=== PATIENT | female | born 1975 | race Caucasian/White ===

== ENCOUNTER 2016-06-04 19:35 | Observation (INO) | payer BC, OTHER ==
[~2016-06-04] VITALS: Ht 170.2 cm; Wt 87.3 kg
[~2016-06-04 19:35] MED LIST: MULTTAB58 PO; SERT1TAB72 PO
[2016-06-04] MEDS ORDERED: NITROGLYCERIN OINT 2% 1GM PACKET EXT STA (19:58)
[2016-06-04] MEDS ORDERED: SODIUM CHLORIDE 0.9% 1000ML 500 ML IV STA (19:58)
--- NOTE | 2016-06-04 20:23 | DIAGNOSTIC IMAGING REPORT ---
CHEST ONE VIEW PORTABLE CLINICAL HISTORY: Atypical chest pain COMPARISON STUDY: 08/22/2014 FINDINGS: The cardiac and mediastinal contours are normal. There is no evidence of focal pulmonary consolidation. There is no evidence of failure. No pleural effusions are visualized.[ IMPRESSION: No active disease in the chest. Electronically signed by: Stephen Guzman M.D. 06/04/2016 8:22 PM Dictated Date/Time: 06/04/2016 8:21 PM
--- NOTE | 2016-06-04 20:35 | EMERGENCY ROOM VISIT NOTE ---
History Report prepared by Ramses: Deyanira Parra Under the Supervision of: Dr. Nilo Chaney M.D. First contact with patient: 19:51 Chief Complaint: CHEST PAIN Stated Complaint: HEAVINESS IN CHEST, SHARP PAIN IN LT SHOULDER/ARM History of Present Illness The patient is a 40 year old female who presents to the Emergency Room with complaints of constant left sided chest pain starting about 10 hours ago. She describes it to be a heaviness. She has intermittent pain radiation to her left shoulder. She was sitting at her desk when she had the onset of her symptoms. She denies any activities that improve or worsen her pain. She currently rates a pain intensity of 6/10. She has not taken any medication to help improve her pain. A few days ago, the patient had similar symptoms which resolved. She has a history of A Flutter and A Fib. A few days ago, the patient had a fluttering sensation which resolved. The patient denies any history of blood clots. The patient is not a smoker. Her father in his 50s from heart disease. She denies any recent illnesses. She also denies fevers, chills, shortness of breath, or any other complaints. Source of History: patient Onset: about 10 hours ago Position: chest (left) Symptom Intensity: 6/10 Quality: other (heaviness) Timing: constant Associated Symptoms: No SOB, No chills, No fevers Review of Systems See HPI for pertinent positives & negatives. A total of 10 systems reviewed and were otherwise negative. Past Medical & Surgical Medical Problems: (1) A-fib (2) Atrial fibrillation (3) Atrial flutter (4) Chest pain (5) Nausea/vomiting in (6) Palpitations (7) uterine contractions, antepartum (8) Tachycardia (9) Threatened premature labor, antepartum (10) Threatened labor, antepartum (11) [place] Teeth Removal Family History Cancer FH: heart disease Hypertension Social History Smoking Status: Never Smoker Marital Status: Housing Status: lives with family Occupation Status: employed Current/Historical Medications Scheduled Multiple Vitamin (Multivitamin), 1 TAB PO DAILY Sertraline Hcl (Zoloft), 25 MG PO DAILY Allergies Coded Allergies: Iodine (Verified Allergy, Mild, INJECTABLE, 09/22/09) Physical Exam Vital Signs Date Time Temp Pulse Resp B/P Pulse Ox O2 Delivery O2 Flow Rate FiO2 06/04/16 21:27 72 20 127/62 97 Room Air 06/04/16 19:54 Room Air 06/04/16 19:50 68 06/04/16 19:38 36.7 66 16 131/84 96 Room Air Physical Exam GENERAL: Patient is in no acute distress. HEENT: No acute trauma, normocephalic atraumatic, mucous membranes moist, no nasal congestion, no scleral icterus. NECK: No stridor, no adenopathy, no meningismus, trachea is midline. CHEST: Nontender chest wall. LUNGS: Clear to auscultation bilaterally, no wheeze, no rhonchi, breath sounds equal. HEART: Without murmurs gallops or rubs, regular rate and rhythm. ABDOMEN: Soft, nontender, bowel sounds positive, no hernias, no peritonitis. EXTREMITIES: No cyanosis or edema, no signs for acute trauma. Slight discomfort with movement of the left shoulder. NEUROLOGIC: Oriented x 3, no acute motor or sensory deficits, no focal weakness. SKIN: No rash, no jaundice, no diaphoresis. Medical Decision & Procedures ER Provider Diagnostic Interpretation: X-ray results as stated below per interpretation by me and the radiologist: CHEST ONE VIEW PORTABLE CLINICAL HISTORY: Atypical chest pain COMPARISON STUDY: 08/22/2014 FINDINGS: The cardiac and mediastinal contours are normal. There is no evidence of focal pulmonary consolidation. There is no evidence of failure. No pleural effusions are visualized.[ IMPRESSION: No active disease in the chest. Electronically signed by: Stephen Guzman M.D. 06/04/2016 8:22 PM Dictated Date/Time: 06/04/2016 8:21 PM Laboratory Results 06/04/16 21:00 06/04/16 21:00 Test 06/04/16 21:00 06/04/16 21:06 Red Blood Count 4.28 M/uL (4.2-5.4) Mean Corpuscular Volume 84.6 fL (80-100) Mean Corpuscular Hemoglobin 29.2 pg (25-34) Mean Corpuscular Hemoglobin Concent 34.5 g/dl (32-36) RDW Standard Deviation 43.4 fL (36.4-46.3) RDW Coefficient of Variation 14.0 % (11.5-14.5) Mean Platelet Volume 9.3 fL (7.4-10.4) Prothrombin Time 10.9 SECONDS (9.0-12.0) Prothromb Time International Ratio 1.0 (0.9-1.1) Activated Partial Thromboplast Time 28.0 SECONDS (21.0-31.0) Partial Thromboplastin Ratio 1.1 Anion Gap 9.0 mmol/L (3-11) Est Creatinine Clear Calc Drug Dose 71.4 ml/min Estimated GFR () 65.0 Estimated GFR (Non- 56.1 BUN/Creatinine Ratio 12.3 (10-20) Calcium Level 8.7 mg/dl (8.5-10.1) Total Bilirubin 0.3 mg/dl (0.2-1) Aspartate Amino Transf (AST/SGOT) 10 U/L (15-37) Alanine Aminotransferase (ALT/SGPT) 18 U/L (12-78) Alkaline Phosphatase 55 U/L (45-117) Total Creatine Kinase 45 U/L (26-192) Creatine Kinase MB < 0.5 ng/ml (0.5-3.6) Creatine Kinase MB Ratio (0-3.0) Troponin I < 0.015 ng/ml (0-0.045) Total Protein 6.7 gm/dl (6.4-8.2) Albumin 3.9 gm/dl (3.4-5.0) Globulin 2.8 gm/dl (2.5-4.0) Albumin/Globulin Ratio 1.4 (0.9-2) Bedside D-Dimer 300 ng/mlFEU (0-450) Laboratory results reviewed by me. Medications Administered Medications (Trade) Dose Ordered Sig/Génesis Route Start Time Stop Time Status Last Admin Dose Admin Sodium Chloride (Nss 1000ml) 500 ml @ 999 mls/hr Q31M STAT IV 06/04/16 19:58 06/04/16 20:28 DC 06/04/16 20:11 999 MLS/HR Nitroglycerin (Nitroglycerin 2% Oint) 1 inch NOW STAT EXT 06/04/16 19:58 06/04/16 20:02 DC 06/04/16 20:10 1 INCH ECG Indication: chest pain Rate (beats per minute): 70 Rhythm: normal sinus Findings: no acute ischemic change, no ectopy ED Course 1950: The patient was evaluated in room B04B. A complete history and physical exam was performed. 1957: Nitroglycerin 1 inch EXT, Sodium Chloride 500 ml @ 999 mls/hr IV 2057: I reevaluated the patient whose chest pain has slightly improved with nitro paste. 2139: Upon reexamination the patient is resting comfortably. I discussed results and treatment plan with the patient. She verbalizes agreement and understanding. The patient will be evaluated for further management. 2210: Aspirin 324 mg PO 2227: I discussed the patient's case with Dr. Subramanian, from [facility]. Medical Decision Differential diagnosis includes but is not limited to musculoskeletal pain, pulmonary embolism, aortic dissection, pneumonia, angina, myocardial infarction , cardiac ischemia. There is no leukocytosis or concerning anemia. No significant electrolyte abnormality, kidney failure or hepatitis. There was no coagulopathy. D-dimer testing was negative. With a negative d-dimer and my low suspicion for PE, I will stop the workup for this diagnosis. EKG shows a normal sinus rhythm, no acute ischemia. Cardiac enzyme testing times one is not suggestive of acute cardiac injury. Chest film shows no mediastinal widening, pneumonia or pneumothorax. The patient was given nitro paste, IV saline, oral aspirin. She is now basically pain-free. The patient presents with chest pressure and pain. She has a strong family history of coronary disease. I cannot reproduce her pain on exam. I do think further cardiac workup would be indicated. I spoke with the patient and case management. The on-call hospitalist was consulted. Consults Time Called: 2134 Consulting Physician: Dr. Subramanian, from [facility] Returned Call: [phone] I discussed the patient's case with Dr. Subramanian, from [facility]. Impression Primary Impression: Left sided chest pain Scribe Attestation The scribe's documentation has been prepared under my direction and personally reviewed by me in its entirety. I confirm that the note above accurately reflects all work, treatment, procedures, and medical decision making performed by me. Departure Information Dispostion Being Evaluated By Hospitalist Referrals Kit Reyes M.D.(HUGH) (PCP) Patient Instructions [facility]
[2016-06-04 21:14] LABS: HEMATOCRIT 36.2 % (37-47); MEAN CELL VOLUME 84.6 fL (80-100); MEAN CORPUSCULAR HEMOGLOBIN 29.2 pg (25-34); MEAN CORPUSCULAR HGB CONC 34.5 g/dl (32-36); MEAN PLATELET VOLUME 9.3 fL (7.4-10.4); PLATELET COUNT 183 K/uL (130-400); RED BLOOD COUNT 4.28 M/uL (4.2-5.4); WHITE BLOOD COUNT 4.72 K/uL (4.8-10.8)
[2016-06-04 21:24] LABS: PARTIAL THROMBOPLASTIN RATIO 1.1; PROTHROMBIN TIME (PATIENT) 10.9 SECONDS (9.0-12.0)
[2016-06-04 21:41] LABS: ALT/SGPT 18 U/L (12-78); BLOOD UREA NITROGEN 15 mg/dl (7-18); BUN/CREATININE RATIO 12.3 (10-20); CALCIUM 8.7 mg/dl (8.5-10.1); CARBON DIOXIDE 25 mmol/L (21-32); CHLORIDE 108 mmol/L (98-107); GLUCOSE 96 mg/dl (70-99); POTASSIUM 3.7 mmol/L (3.5-5.1); SODIUM 142 mmol/L (136-145)
[2016-06-04 21:45] LABS: ALB/GLOB RATIO 1.4 (0.9-2); ALKALINE PHOSPHATASE 55 U/L (45-117); AST/SGOT 10 U/L (15-37)
[2016-06-04] MEDS ORDERED: ASPIRIN 81 MG CHEW PO STA (22:11)
--- NOTE | 2016-06-04 22:24 | History and Physical ---
History & Physical Date & Time of Service: Jun 04, 2016 at 22:25 . Chief Complaint: chest pain . Primary Care Physician: Kit Reyes M.D.(JAVIER) . History of Present Illness Source: patient, clinic records, hospital records 40 YO female followed by Dr. Reyes. History of paroxysmal atrial fibrillation. Father had history of premature ischemic heart disease and at the age of 50. Experiences chronic occasional mild palpitations without associated symptoms. 2 days ago had an episode of chest pressure while sitting at her desk at work. Today around 10:00 she experienced more severe midsternal chest pressure that radiated to her left arm, again while working at her desk. No associated dyspnea, diaphoresis, nausea, vomiting. Had a few episodes of palpitations throughout the day. [place] a bit lightheaded. Chest pressure persisted, so she came to the ED for evaluation around 19:30. Received NTP with resolution of the CP. She notes mild dyspnea on exertion, but no associated chest pain / pressure. . Past Medical/Surgical History Chronic Medical Problems: Cholelithiasis Paroxysmal atrial fibrillation . Family History FATHER Coronary artery disease ( age 50) MOTHER Atrial fibrillation BROTHER Hypertension SISTER Atrial fibrillation Social History Smoking Status: Never Smoker Alcohol Use: occasionally Marital Status: Housing status: lives with family Occupational Status: employed Immunizations History of Influenza Vaccine: Unknown History of Tetanus Vaccine?: Unknown History of Pneumococcal: Unknown History of Hepatitis B Vaccine: Unknown Multi-Drug Resistant Organisms History of MDRO: No Allergies Coded Allergies: Iodine (Verified Allergy, Mild, INJECTABLE, 09/22/09) Home Medications Scheduled Multiple Vitamin (Multivitamin), 1 TAB PO DAILY Sertraline Hcl (Zoloft), 25 MG PO DAILY Review of Systems Constitutional: No fever, No weight loss Eyes: No diplopia, No worsening of vision ENT: No hearing loss, No nasal symptoms Respiratory: + dyspnea on exertion, No cough Cardiovascular: + problem reported (as noted in HPI) Abdomen: No GI bleeding, No diarrhea, No nausea, No pain, No vomiting Musculoskeletal: No joint pain Genitourinary - Female: No dysuria, No hematuria Neurologic: + problem reported (migraine headaches) Endocrine: No excessive thirst, No excessive urination Hematologic / Lymphatic: + abnormal bleeding/bruising (bruises easily), No swollen lymph nodes Integumentary: No new/changing skin lesions, No rash Physical Exam Vital Signs Date Time Temp Pulse Resp B/P Pulse Ox O2 Delivery O2 Flow Rate FiO2 06/04/16 21:27 72 20 127/62 97 Room Air 06/04/16 19:54 Room Air 06/04/16 19:50 68 06/04/16 19:38 36.7 66 16 131/84 96 Room Air General Appearance: WD/WN, no apparent distress Head: normocephalic, atraumatic Eyes: normal inspection, PERRL, EOMI, sclerae normal, + pertinent finding ( conjunctivae pink) ENT: normal ENT inspection, hearing grossly normal, pharynx normal Neck: supple, no adenopathy, thyroid normal, no JVD, trachea midline Respiratory/Chest: lungs clear, no respiratory distress, no accessory muscle use Cardiovascular: regular rate, rhythm, no edema, no gallop, no JVD, no murmur Abdomen/GI: normal bowel sounds, non tender, soft, no organomegaly Extremities/Musculoskelatal: normal inspection, no calf tenderness, no pedal edema 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 (PERRL, EOMI, no facial palsy), alert, normal mood/affect, oriented x 3 Skin: normal color, warm/dry, no rash Lymphatic: no adenopathy Diagnostics Laboratory Results Results Past 24 Hours Test 06/04/16 21:00 06/04/16 21:06 Range/Units White Blood Count 4.72 4.8-10.8 K/uL Red Blood Count 4.28 4.2-5.4 M/uL Hemoglobin 12.5 12.0-16.0 g/dL Hematocrit 36.2 37-47 % Mean Corpuscular Volume 84.6 80-100 fL Mean Corpuscular Hemoglobin 29.2 25-34 pg Mean Corpuscular Hemoglobin Concent 34.5 32-36 g/dl RDW Standard Deviation 43.4 36.4-46.3 fL RDW Coefficient of Variation 14.0 11.5-14.5 % Platelet Count 183 130-400 K/uL Mean Platelet Volume 9.3 7.4-10.4 fL Prothrombin Time 10.9 9.0-12.0 SECONDS Prothromb Time International Ratio 1.0 0.9-1.1 Activated Partial Thromboplast Time 28.0 21.0-31.0 SECONDS Partial Thromboplastin Ratio 1.1 Sodium Level 142 136-145 mmol/L Potassium Level 3.7 3.5-5.1 mmol/L Chloride Level 108 98-107 mmol/L Carbon Dioxide Level 25 21-32 mmol/L Anion Gap 9.0 3-11 mmol/L Blood Urea Nitrogen 15 7-18 mg/dl Creatinine 1.20 0.60-1.20 mg/dl Est Creatinine Clear Calc Drug Dose 71.4 ml/min Estimated GFR () 65.0 Estimated GFR (Non- 56.1 BUN/Creatinine Ratio 12.3 10-20 Random Glucose 96 70-99 mg/dl Calcium Level 8.7 8.5-10.1 mg/dl Total Bilirubin 0.3 0.2-1 mg/dl Aspartate Amino Transf (AST/SGOT) 10 15-37 U/L Alanine Aminotransferase (ALT/SGPT) 18 12-78 U/L Alkaline Phosphatase 55 45-117 U/L Total Creatine Kinase 45 26-192 U/L Creatine Kinase MB < 0.5 0.5-3.6 ng/ml Creatine Kinase MB Ratio 0-3.0 Troponin I < 0.015 0-0.045 ng/ml Total Protein 6.7 6.4-8.2 gm/dl Albumin 3.9 3.4-5.0 gm/dl Globulin 2.8 2.5-4.0 gm/dl Albumin/Globulin Ratio 1.4 0.9-2 Bedside D-Dimer 300 0-450 ng/mlFEU Diagnostic Radiology CHEST ONE VIEW PORTABLE IMPRESSION: No active disease in the chest. Electronically signed by: Stephen Guzman M.D. 06/04/2016 8:22 PM . EKG EKG performed at 19:39 reviewed and demonstrated NSR at 70 / minute, no acute ST or T-wave abnormalities. . Impression Assessment and Plan CHEST PAIN Chest pain at rest that lasted for several hours, resolved after administration of NTP in ED. Cardiac markers in ED normal. No acute EKG changes. Family history of premature CAD (father at age of 50); no other risk factors for CAD. Check serial cardiac markers. Check lipid profile. Consult Cardiology. PAROXYSMAL ATRIAL FIBRILLATION Monitor on Telemetry Unit. VTE PROPHYLAXIS SQ enoxaparin. Ambulate. DISPOSITION Observation status on Telemetry Unit. Expected discharge to home. Family Medicine follow-up with Dr. Reyes. . VTE Prophylaxis VTE Risk Assessment Done? Y/N: Yes Risk Level: Low Given or contraindicated: Enoxaparin (Lovenox)SQ
[2016-06-04] MEDS ORDERED: ENOXAPARIN 40 MG/0.4 ML SYR SC SCH (22:30)
[2016-06-04] MEDS ORDERED: NITROGLYCERIN 0.4 MG SL PER TAB CHARGE SL PRN (22:30)
[2016-06-04] MEDS ORDERED: ONDANSETRON INJ 2 MG/ML 2 ML VIAL IV PRN (22:30)
[2016-06-04] MEDS ORDERED: IV FLUIDS COMPLETED PRN (22:45)
[2016-06-04 23:00] VITALS: BP 131/91; PULSE 68; TEMP 36.9; O2SAT 96; Ht 170.2 cm; Wt 87.3 kg
[2016-06-04] MEDS: ACETAMINOPHEN 325 MG TAB PO PRN (23:13)
[2016-06-04 23:59] VITALS: O2SAT 95
[2016-06-05 03:48] VITALS: BP 102/57; PULSE 73; TEMP 36.6; O2SAT 94
[2016-06-05] MEDS: ACETAMINOPHEN 325 MG TAB PO PRN ×2 (03:56→08:31)
[2016-06-05 04:00] VITALS: O2SAT 95
[2016-06-05 06:25] LABS: CHOLESTEROL 176 mg/dl (0-200); HDL CHOLESTEROL 59 mg/dl; LDL CHOLESTEROL CALCULATED 103 mg/dl; TRIGLYCERIDES 68 mg/dl (0-150); VERY LOW DENSITY LIPOPROT CALC 14 mg/dl
[2016-06-05 07:46] VITALS: BP 110/62; PULSE 79; TEMP 36.8; O2SAT 98
[2016-06-05] MEDS ORDERED: SERTRALINE HCL 50 MG TAB PO SCH (09:00)
[2016-06-05] MEDS ORDERED: PERFLUTREN LIPID MICROSPHERE (DEFINITY) IV ONE (10:38)
--- NOTE | 2016-06-05 11:15 | EXERCISE STRESS ECHO ---
*NOTICE TO RECEIVING REPUBLICAN AGENCY This information is strictly Confidential and protected under [place] law. [place] law prohibits you from making any further disclosure of this information unless further disclosure is expressly permitted by the written consent of the person to whom it pertains or is authorized by law. A general authorization for the release of medical or other information is not sufficient for this purpose. Hospital accepts no responsibility if the information is made available to any other person, INCLUDING THE PATIENT. Interpretation Summary * Name: MAREN FREY Study Date: 06/05/2016 08:56 AM BP: 102/66 mmHg * Patient Location: C.2E\S\E205\S\1 HR: 64 * : 1975 (M/d/yyyy) Gender: Female Height: 67 in * Age: 40 yrs Ethnicity: CA Weight: 192 lb * Ordering Physician: Joseph Preciado * Performed By: Shira Doran RDCS * * Reason For Study: CHEST PAIN * BSA: 2.0 m2 * History: CHEST PAIN * Exercise capacity is above average. * The stress echocardiogram is negative for inducible ischemia. * _ workload achieved. * -- Conclusions -- * Resting wall motion: Normal. Stress wall motion: Appropriate increase in Left ventricular systolic function and decrease in cavity size. No stress induced segmental wall motion abnormalities. * No valvular heart disease is present Procedure Details * ECHOEX, CPT #83997 * A contrast injection of Definity was performed to improve assessment of LV function. * Contrast was injected into an intravenous site in the left arm. * One vial of Definity ultrasound contrast was diluted in normal saline to a total volume of 10 ml. A total of '4' ml of solution was administered during imaging. * Lot # [id number] of Definity utilized for procedure. * Expiration date APR 25. * The attending nurse who injected the contrast agent was NEVA PEGUERO RN. * ECHO DOPPLER, CPT #75849 * ECHO COLOR FLOW, CPT #07223 Left Ventricle * The left ventricle is normal in size. * There is normal left ventricular wall thickness. * Ejection Fraction = 60-65%. * Left ventricular systolic function is normal. * Resting wall motion: Normal. Stress wall motion: Appropriate increase in Left ventricular systolic function and decrease in cavity size. No stress induced segmental wall motion abnormalities. Right Ventricle * The right ventricle is normal in size and function. Atria * The left atrial size is normal. * Right atrial size is normal. * No ASD detected; PFO is not assessed. Mitral Valve * The mitral valve anatomy is normal. * There is no mitral valve stenosis. * There is trace mitral regurgitation. Tricuspid Valve * The tricuspid valve anatomy is normal. * There is no tricuspid stenosis. * There is trace tricuspid regurgitation. Aortic Valve * The aortic valve is trileaflet. * No hemodynamically significant valvular aortic stenosis. * No aortic regurgitation is present. Pulmonic Valve * The pulmonic valve is not well visualized. Great Vessels * The aortic root is normal size. Pericardium * There is no pericardial effusion. Stress Parameters * Normal baseline electrocardiogram. * The stress ECG response was normal * The stress portion of this study was personally supervised by the undersigned interpreting physician. * Rest heart rate was '64' BPM. * Rest blood pressure was '102/66' * Maximum heart rate achieved was 164 bpm. * Maximum heart rate was 91 % of maximum age-predicted heart rate. * Maximum blood pressure was '201/84' * Total exercise time was '9:30' * Maximum exercise MET level achieved was '10.70' METS * Maximum treadmill speed was '4.20' miles per hour. * Maximum treadmill elevation was '16.00'% grade. * Exercise was terminated due to 'ACHIEVING TARGET HR' MMode 2D Measurements and Calculations IVSd 0.85 cm IVSs 1.4 cm LVIDd 3.8 cm LVIDs 2.7 cm LVPWd 1.1 cm LVPWs 1.5 cm IVS/LVPW 0.77 FS 29.8 % EDV(Teich) 62.2 ml ESV(Teich) 26.3 ml EF(Teich) 57.7 % EDV(cubed) 55.2 ml ESV(cubed) 19.1 ml EF(cubed) 65.4 % % IVS thick 65.2 % % LVPW thick 34.0 % LV mass(C)d 114.5 grams LV mass(C)dI 57.6 grams/m\S\2 LV mass(C)s 128.5 grams LV mass(C)sI 64.6 grams/m\S\2 SV(Teich) 35.9 ml SI(Teich) 18.1 ml/m\S\2 SV(cubed) 36.1 ml SI(cubed) 18.2 ml/m\S\2 Ao root diam 2.9 cm Ao root area 6.6 cm\S\2 LA dimension 3.5 cm LA/Ao 1.2 LVAd ap4 40.1 cm\S\2 LVLd ap4 9.8 cm EDV(MOD-sp4) 135.0 ml EDV(sp4-el) 139.9 ml LVAs ap4 21.9 cm\S\2 LVLs ap4 7.9 cm ESV(MOD-sp4) 52.2 ml ESV(sp4-el) 51.6 ml EF(MOD-sp4) 61.4 % EF(sp4-el) 63.1 % LVAd ap2 35.2 cm\S\2 LVLd ap2 9.6 cm EDV(MOD-sp2) 108.6 ml EDV(sp2-el) 109.0 ml LVAs ap2 18.6 cm\S\2 LVLs ap2 7.4 cm ESV(MOD-sp2) 38.5 ml ESV(sp2-el) 39.6 ml EF(MOD-sp2) 64.6 % EF(sp2-el) 63.6 % LVLd %diff -1.42 % EDV(MOD-bp) 120.5 ml LVLs %diff -7.03 % ESV(MOD-bp) 45.3 ml EF(MOD-bp) 62.4 % SV(MOD-sp4) 82.9 ml SI(MOD-sp4) 41.7 ml/m\S\2 SV(MOD-sp2) 70.1 ml SI(MOD-sp2) 35.3 ml/m\S\2 SV(MOD-bp) 75.2 ml SI(MOD-bp) 37.8 ml/m\S\2 SV(sp4-el) 88.3 ml SI(sp4-el) 44.4 ml/m\S\2 SV(sp2-el) 69.3 ml SI(sp2-el) 34.9 ml/m\S\2 Doppler Measurements and Calculations MV E max caryl 72.1 cm/sec MV A max caryl 58.7 cm/sec MV E/A 1.2 MV dec time 0.30 sec Ao V2 max 157.5 cm/sec Ao max PG 9.9 mmHg Ao max PG (full) 5.1 mmHg LV V1 max PG 4.8 mmHg LV V1 max 109.6 cm/sec
--- NOTE | 2016-06-05 11:25 | CARDIOLOGY CONSULTATION ---
DATE OF CONSULTATION: 06/05/2016 REFERRING: Dr. Subramanian. PRIMARY CARE PHYSICIAN: Dr. Tapan Reyes. INDICATIONS: Chest pressure pain. HISTORY OF PRESENT ILLNESS: The patient is a 40-year-old female whose past medical history is notable for paroxysmal atrial fibrillation in association with , on no medical therapies, no documented prior history of cardiac disease or structural heart disease, with past echocardiograms normal. She does carry a familial history of heart disease in father with coronary disease in his 50s, presents now having developed heart heavy chest pressure pain substernally while sitting at work. Episodes had recurred once from prior before. Notes an occasional fluttering in her heart. Notes no sustained tachypalpitations. Notes no syncope or near syncope. Due to symptoms and complaints of chest pressure pain, she presented to the Emergency Room for further evaluation. She denied fevers, chills, recent illness or cough. Notes no indigestion or heartburn. Noted no associated exertional relationship, dyspnea or diaphoresis. Notes no melena, hematochezia, dysuria or hematuria. Weight and appetite have been stable. She is moderately active about her home without specific limitation recently. Symptoms were possibly relieved by nitroglycerin in the Emergency Room though initial EKGs and cardiac enzymes are negative with normal tracings. Serial EKGs this morning demonstrate no change in ST segments. Telemetry reveals no arrhythmias. ALLERGIES: IODINE. MEDICATIONS AT HOME: Sertraline and a multivitamin. FAMILY HISTORY: Notable for heart disease with father having diffuse significant coronary artery disease at age 50. Mother and sister have a history of atrial fibrillation. SOCIAL HISTORY: The patient works in [employer] for [employer]. She is a nonsmoker, rare alcohol user. Modestly active about home. PHYSICAL EXAMINATION: VITAL SIGNS: Heart rate is 79, blood pressure is 110/62. HEENT: Normocephalic, atraumatic. Nares without discharge. Throat is clear. NECK: Supple without thyromegaly, lymphadenopathy, JVD or bruit. LUNGS: Clear to auscultation. CARDIOVASCULAR: Regular with normal S1, S2. There is no murmur, gallop or rub. PMI is nondisplaced. ABDOMEN: Soft, nontender. There is no palpable hepatosplenomegaly, there is no hepatojugular reflux. EXTREMITIES: Without cyanosis or clubbing. There is no peripheral edema. NEUROLOGIC: The patient is intact grossly. LABORATORY DATA: D-dimer was 300. Sodium is 142, potassium is 3.7, chloride is 108, bicarbonate is 25, BUN is 15, creatinine is 1.2. Cholesterol is 176, LDL 103 and HDL 59, on no medical therapies. White cell count is 4.7, hemoglobin is 12.5. Chest x-ray demonstrated no active disease per report. EKG on presentation revealed sinus rhythm with normal tracing. Repeat EKG finds similar findings this morning. Cardiac enzymes since admission have been normal with troponin level of less than 0.015 x3. STRESS ECHOCARDIOGRAPHY: The patient exercised for 9 minutes and 30 seconds on standard Shoaib protocol before stopping secondary to fatigue. Peak heart rate achieved was greater than 95% age predicted maximum heart rate. There were no cardiac symptoms induced. Resting and stress EKG was normal. Resting and stress LV function were normal with study negative for stress-induced ischemia at high-level workload. IMPRESSION: This 40-year-old female is evaluated for history of chest pain of 2 days' duration, intermittent. Symptoms atypical to some degree and not exertionally related or exacerbated. Cardiac enzymes have been negative. EKGs are normal. Stress echocardiography was normal suggesting this is nonischemic in origin. She carries a history of past paroxysmal atrial fibrillation without significant recurrences. Overall, no acute process is discerned. Discussed this in detail with the patient. If the patient wishes to follow with cardiology, we would be willing to see patient in 6 weeks' time. No adjustments or changes in medical therapy made.
[2016-06-05 11:53] VITALS: BP 105/61; PULSE 73; TEMP 36.9; O2SAT 99
--- NOTE | 2016-06-05 13:03 | Discharge Instructions ---
Discharge Instructions Admission Reason for Admission: Chest Pain Discharge Discharge Diagnosis / Problem: Atypical chest pain Discharge Goals Goal(s): Improve function, Prevent Disease Progression Activity Recommendations Activity Limitations: resume your previous activity . Instructions / Follow-Up Instructions / Follow-Up Please continue all medications as instructed. Please follow-up with Cardiology as instructed. You have been scheduled with Dr. Reyes on 06/10 @ 11:10am. Please bring all paperwork with you from this hospitalization. It was a pleasure taking care of you! Call if you have any questions or problems. You can reach a [facility] hospitalist on duty at [facility] 24 hours a day by calling [phone]. Take care of yourself. Ophelia Siddiqui DO [facility] Current Hospital Diet Patient's current hospital diet: AHA Diet (Heart Healthy) Discharge Diet Recommended Diet: Regular Diet Pending Studies Studies pending at discharge: no Laboratory Results Lipid Panel Test 06/05/16 05:32 Range/Units Triglycerides Level 68 0-150 mg/dl Cholesterol Level 176 0-200 mg/dl HDL Cholesterol 59 mg/dl Cholesterol/HDL Ratio 3.0 LDL Cholesterol, Calculated 103 mg/dl Medical Emergencies . Who to Call and When: Medical Emergencies: If at any time you feel your situation is an emergency, please call 911 immediately. . Non-Emergent Contact Non-Emergency issues call your: Primary Care Provider . . "Provider Documentation" section prepared by Ophelia Siddiqui. VTE Core Measure Inpt VTE Proph given/why not?: Enoxaparin (Lovenox)SQ
--- NOTE | 2016-06-12 06:09 | Discharge Summary ---
Discharge Summary Admission Date: Jun 04, 2016 at 22:24 Discharge Date: Jun 05, 2016 Discharge Disposition: Home Principal Diagnosis: Atypical chest pain Procedures: Dobutamine stress echo (06/05): * Exercise capacity is above average. * The stress echocardiogram is negative for inducible ischemia. * _ workload achieved. * -- Conclusions -- * Resting wall motion: Normal. Stress wall motion: Appropriate increase in Left ventricular systolic function and decrease in cavity size. No stress induced segmental wall motion abnormalities. * No valvular heart disease is present Vaccinations: None Consultations: Cardiology Medication Reconciliation Continued Medications: Multiple Vitamin (Multivitamin) 1 Tab Tab 1 TAB PO DAILY, TAB Sertraline Hcl (Zoloft) 25 Mg Tab 25 MG PO DAILY, TAB Admission Information HPI (per Admitting provider): 40 YO female followed by Dr. Reyes. History of paroxysmal atrial fibrillation. Father had history of premature ischemic heart disease and at the age of 50. Experiences chronic occasional mild palpitations without associated symptoms. 2 days ago had an episode of chest pressure while sitting at her desk at work. Today around 10:00 she experienced more severe midsternal chest pressure that radiated to her left arm, again while working at her desk. No associated dyspnea, diaphoresis, nausea, vomiting. Had a few episodes of palpitations throughout the day. [place] a bit lightheaded. Chest pressure persisted, so she came to the ED for evaluation around 19:30. Received NTP with resolution of the CP. She notes mild dyspnea on exertion, but no associated chest pain / pressure. . Physical Exam (per Admitting): General Appearance: WD/WN, no apparent distress Head: normocephalic, atraumatic Eyes: normal inspection, PERRL, EOMI, sclerae normal, + pertinent finding ( conjunctivae pink) ENT: normal ENT inspection, hearing grossly normal, pharynx normal Neck: supple, no adenopathy, thyroid normal, no JVD, trachea midline Respiratory/Chest: lungs clear, no respiratory distress, no accessory muscle use Cardiovascular: regular rate, rhythm, no edema, no gallop, no JVD, no murmur Abdomen/GI: normal bowel sounds, non tender, soft, no organomegaly Extremities/Musculoskelatal: normal inspection, no calf tenderness, no pedal edema Neurologic/Psych: 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 She does have a family history of heart disease in her father with coronary disease in his 50s. Symptoms were unrelated to exertion. She was admitted overnight for observation with serial negative cardiac enzymes and normal EKGs. Stress echo was performed the following morening and was normal suggesting the pain is nonischemic in origin. No adjustments or changes in medical therapy were made. She remained hemodynamically stable throughout her hospitalization and was sent home in good condition. Total time spent on discharge = 60 minutes This includes examination of the patient, discharge planning, medication reconciliation, and communication with other providers. Discharge Instructions Discharge Instructions Admission Reason for Admission: Chest Pain Discharge Discharge Diagnosis / Problem: Atypical chest pain Discharge Goals Goal(s): Improve function, Prevent Disease Progression Activity Recommendations Activity Limitations: resume your previous activity . Instructions / Follow-Up Instructions / Follow-Up Please continue all medications as instructed. Please follow-up with Cardiology as instructed. You have been scheduled with Dr. Reyes on 06/10 @ 11:10am. Please bring all paperwork with you from this hospitalization. It was a pleasure taking care of you! Call if you have any questions or problems. You can reach a [facility] Hospitalist on duty at [facility] 24 hours a day by calling [phone]. Take care of yourself. Ophelia Siddiqui, DO [facility]ist Additional Copies To Kit Reyes M.D.(JAVIER)
== END 2016-06-05 13:59 | disposition home or self-care (01) ==
LOC: ENRESERVTM → ENRESERVDT → C.EDB 19:36 → C.2E 22:24
PROVIDERS: ADMIT Hospitalist; ATTEND Hospitalist
DX: R07.89 Other chest pain (principal); I48.0 Paroxysmal atrial fibrillation; Z82.49 Family history of ischemic heart disease and other diseases of the circulatory system